=== PATIENT | female | born 1950 | race Caucasian/White ===

== ENCOUNTER 2017-07-31 10:25 | Outpatient (CLI) | payer OTHER ==
[~2017-07-31] VITALS: Ht 157.5 cm; Wt 55.3 kg
== END 2017-07-31 10:45 | disposition home or self-care (01) ==
LOC: OFIC 805 10:25
DX: K31.84 Gastroparesis (principal); G35 Multiple sclerosis; K59.09 Other constipation; R49.0 Dysphonia